=== PATIENT | female | born 1940 | race African-American/Black ===

== ENCOUNTER 2018-12-15 19:37 | Inpatient (IN) | payer BC ==
[~2018-12-15] VITALS: Ht 162.6 cm; Wt 78.5 kg
[~2018-12-15 19:37] MED LIST: ASPI-1159 PO; ERGO400C MT; FISH1CAP34 PO; FOLI-43 MT; FURO-152 PO; MULT-1241 PO; OLME20TA14 PO; PANT40TA4 PO; ROSU10TA PO; ZIAC10 PO
[2018-12-15] MEDS ORDERED: ONDANSETRON HCL 4MG/2ML INJ IV PRN (23:00)
[2018-12-15] MEDS ORDERED: ZOLPIDEM TARTRATE 5MG TABLET PO PRN (23:15)
[2018-12-15 23:29] VITALS: BP 142/69
[2018-12-16] VITALS: BP 131/64
[2018-12-16] MEDS: DEXT 5%/0.45% NACL 1000ML 1,000 ML IV SCH ×2 (00:08→13:32)
[2018-12-16] MEDS: MORPHINE SULFATE 30MG TABLET SR PO SCH ×3 (00:09→21:00)
[2018-12-16] MEDS ORDERED: DIATR MEGLU/DIATRIZOATE SOLN 30ML PO NR (05:45)
[2018-12-16 08:00] VITALS: BP_SYST 116; BP_DIAS 55; BP_DIAS 58
[2018-12-16 08:15] LABS: HEMATOCRIT 33.2 % (36.0-48.0); HEMOGLOBIN 10.8 g/dL (12.0-16.0); MEAN CORPUSCULAR HEMOGLOBIN 28.3 pg (28.0-32.0); MEAN CORPUSCULAR VOLUME 87.3 fL (81.0-99.0); PLATELET 147 x1000/uL (130-400); RED BLOOD CELL COUNT 3.81 mill/uL (4.2-5.4); RED CELL DISTRIBUTION WIDTH 13.2 % (11.6-14.6)
[2018-12-16 08:21] LABS: PROTHROMBIN TIME 10.2 sec (9.1-11.1)
[2018-12-16 08:34] LABS: CHLORIDE 107 mEq/L (98-107)
[2018-12-16 08:39] LABS: PHOSPHORUS 3.2 mg/dL (2.5-4.9)
[2018-12-16 08:41] LABS: LDL CHOLESTEROL 117 mg/dL (5-100)
[2018-12-16] MEDS: CYANOCOBALAMIN/FA/PYRIDOXINE TABLET PO SCH ×2 (08:41→22:03)
[2018-12-16 08:42] LABS: HDL CHOLESTEROL 71 mg/dL (40-59)
[2018-12-16 08:44] LABS: TOTAL IRON BINDING CAPACITY 233 ug/dL (250-450)
[2018-12-16] MEDS: ONDANSETRON HCL 4MG/2ML INJ IV PRN ×2 (13:32→22:03)
[2018-12-16] MEDS ORDERED: SORBITOL 70% SOLN 30ML PO NR (14:30)
[2018-12-16] MEDS ORDERED: BISACODYL 10MG SUPP PR PRN (14:30)
[2018-12-16] MEDS: HYDROMORPHONE HCL/PF 2MG/ML CPJ IV PRN (15:49)
[2018-12-16 16:00] VITALS: BP 136/58
[2018-12-16] MEDS ORDERED: MAGNESIUM CITRATE 300ML SOLUTION PO NR (16:00)
[2018-12-16] MEDS: SENNOSIDES/DOCUSATE SOD 8.6/50MG TABLET PO SCH (17:50)
[2018-12-16 20:00] VITALS: BP 147/75
[2018-12-17] VITALS: BP 149/76
[2018-12-17 04:00] VITALS: BP 144/75
[2018-12-17] MEDS: DEXT 5%/0.45% NACL 1000ML 1,000 ML IV SCH ×2 (04:21→21:27)
[2018-12-17 07:38] LABS: BASOPHILS % 0.5 % (0.0-2.0); EOSINOPHILS % 0.8 % (0.0-5.0); HEMATOCRIT. 33.5 % (36.0-48.0); LYMPHOCYTES % 14.5 % (20.0-50.0); MEAN CORPUSCULAR VOLUME 87.7 fL (81.0-99.0); MEAN PLATELET VOLUME 10.2 fl (7.4-10.4); NEUTROPHILS % 75.2 % (40.0-76.0); PLATELET 171 x1000/uL (130-400); RED BLOOD CELL COUNT 3.81 mill/uL (4.2-5.4); RED CELL DISTRIBUTION WIDTH 13.1 % (11.6-14.6)
[2018-12-17 08:00] VITALS: BP 150/65
[2018-12-17] MEDS ORDERED: MAGNESIUM CITRATE 300ML SOLUTION PO PRN (09:00)
[2018-12-17] MEDS: SENNOSIDES/DOCUSATE SOD 8.6/50MG TABLET PO SCH ×2 (09:27→16:38)
[2018-12-17] MEDS: CYANOCOBALAMIN/FA/PYRIDOXINE TABLET PO SCH ×2 (09:29→21:19)
[2018-12-17] MEDS: MORPHINE SULFATE 30MG TABLET SR PO SCH ×2 (09:29→21:19)
[2018-12-17 10:14] LABS: CHLORIDE 105 mEq/L (98-107)
[2018-12-17 10:29] LABS: PHOSPHORUS 2.6 mg/dL (2.5-4.9)
[2018-12-17] MEDS ORDERED: SORBITOL 70% SOLN 30ML PO NR (11:00)
[2018-12-17 12:00] VITALS: BP 119/74
[2018-12-17 12:14] LABS: VITAMIN B12 SERUM > 2000.0 pg/mL (211-911)
[2018-12-17 13:11] LABS: CANCER ANTIGEN 125 4.7 U/mL (0.0-38.1)
[2018-12-17] MEDS: ONDANSETRON HCL 4MG/2ML INJ IV PRN ×2 (14:33→21:29)
[2018-12-17 16:00] VITALS: BP 157/80
[2018-12-18] VITALS: BP 141/62
[2018-12-18] MEDS: HYDROMORPHONE HCL/PF 2MG/ML CPJ IV PRN (03:19)
[2018-12-18 04:00] VITALS: BP 131/71
[2018-12-18 07:35] LABS: BASOPHILS % 0.6 % (0.0-2.0); EOSINOPHILS % 2.4 % (0.0-5.0); HEMATOCRIT. 34.3 % (36.0-48.0); LYMPHOCYTES % 16.1 % (20.0-50.0); MEAN CORPUSCULAR HEMOGLOBIN 28.5 pg (28.0-32.0); MEAN CORPUSCULAR VOLUME 88.8 fL (81.0-99.0); MONOCYTES % 11.1 % (2.0-8.0); NEUTROPHILS % 69.8 % (40.0-76.0); PLATELET 171 x1000/uL (130-400); RED BLOOD CELL COUNT 3.86 mill/uL (4.2-5.4)
[2018-12-18 07:46] LABS: CHLORIDE 108 mEq/L (98-107)
[2018-12-18 08:00] VITALS: BP 131/64
[2018-12-18] MEDS: CYANOCOBALAMIN/FA/PYRIDOXINE TABLET PO SCH ×2 (09:00→21:11)
[2018-12-18] MEDS: SENNOSIDES/DOCUSATE SOD 8.6/50MG TABLET PO SCH ×2 (09:00→16:00)
[2018-12-18] MEDS: ONDANSETRON HCL 4MG/2ML INJ IV PRN (09:33)
[2018-12-18 12:00] VITALS: BP 148/64
[2018-12-18] MEDS ORDERED: HYDROMORPHONE HCL/PF 2MG/ML CPJ IV PRN (13:56)
[2018-12-18] MEDS ORDERED: MORPHINE SULFATE 30MG TABLET SR PO PRN ×2 (14:00→21:00)
[2018-12-18] MEDS: DEXT 5%/0.45% NACL 1000ML 1,000 ML IV SCH ×2 (15:50→22:31)
[2018-12-18 19:01] VITALS: BP 112/55
[2018-12-18 20:00] VITALS: BP_SYST 128; BP_SYST 132; BP_DIAS 71; BP_DIAS 86
[2018-12-19] VITALS: BP 128/86
[2018-12-19 04:00] VITALS: BP 153/82
[2018-12-19 08:00] VITALS: BP 160/72
[2018-12-19] MEDS: CYANOCOBALAMIN/FA/PYRIDOXINE TABLET PO SCH ×2 (09:00→20:37)
[2018-12-19] MEDS: ONDANSETRON HCL 4MG/2ML INJ IV PRN (10:53)
[2018-12-19] MEDS: SENNOSIDES/DOCUSATE SOD 8.6/50MG TABLET PO SCH ×2 (10:53→17:00)
[2018-12-19 12:00] VITALS: BP 104/56
[2018-12-19] MEDS: DEXT 5%/0.45% NACL 1000ML 1,000 ML IV SCH (12:48)
[2018-12-19] MEDS: OMEPRAZOLE 20MG CAPSULE EXTENDED RELEASE PO SCH (14:00)
[2018-12-19] MEDS: ONDANSETRON 4MG ODT PO PRN (15:37)
[2018-12-19 16:00] VITALS: BP 159/73
[2018-12-19 20:00] VITALS: BP 143/66
[2018-12-20] VITALS: BP 118/55
[2018-12-20 04:00] VITALS: BP 132/73
[2018-12-20] MEDS: OMEPRAZOLE 20MG CAPSULE EXTENDED RELEASE PO SCH (06:36)
[2018-12-20 08:00] VITALS: BP 124/62
[2018-12-20] MEDS: SENNOSIDES/DOCUSATE SOD 8.6/50MG TABLET PO SCH (08:15)
[2018-12-20] MEDS: CYANOCOBALAMIN/FA/PYRIDOXINE TABLET PO SCH (08:15)
[2018-12-20] MEDS: ONDANSETRON 4MG ODT PO PRN (08:33)
[2018-12-20 10:55] VITALS: BP 124/62
[2018-12-20 13:06] LABS: 25-HYDROXY VITAMIN D3 42 ng/mL (.)
== END 2018-12-20 11:21 | disposition home or self-care (01) | DRG 392 ==
LOC: 6EST 19:37
PROVIDERS: ADMIT Internal Medicine; ATTEND Internal Medicine
DX: K59.03 Drug induced constipation (principal); K57.90 Diverticulosis of intestine, part unspecified, without perforation or abscess without bleeding; E78.5 Hyperlipidemia, unspecified; E88.81 Metabolic syndrome and other insulin resistance; I10 Essential (primary) hypertension; E11.649 Type 2 diabetes mellitus with hypoglycemia without coma; M47.895 Other spondylosis, thoracolumbar region; M48.05 Spinal stenosis, thoracolumbar region; T38.0X5A Adverse effect of glucocorticoids and synthetic analogues, initial encounter; E11.65 Type 2 diabetes mellitus with hyperglycemia; M47.897 Other spondylosis, lumbosacral region; M51.15 Intervertebral disc disorders with radiculopathy, thoracolumbar region; M51.17 Intervertebral disc disorders with radiculopathy, lumbosacral region; I25.10 Atherosclerotic heart disease of native coronary artery without angina pectoris; D64.9 Anemia, unspecified; I27.20 Pulmonary hypertension, unspecified; T40.605A Adverse effect of unspecified narcotics, initial encounter; Y92.89 Other specified places as the place of occurrence of the external cause; Z90.710 Acquired absence of both cervix and uterus; Z79.891 Long term (current) use of opiate analgesic
CPT/HCPCS: 36415; 71250; 74018; 74176; 80061; 80076; 82248; 82306; 82378; 82607; 83036; 83520; 83540; 83550; 83735; 84100; 84443; 84550; 85027; 85651; 86301; 86304; 86677; 93970; C1893; J1170; J2405; Q0162